=== PATIENT | female | born 1990 | race Caucasian/White ===

== ENCOUNTER → 2020-08-26 14:00 | Outpatient (BNVA) | payer BC, MEDICAID, SELFPAY | PROVIDERS: Family Provider Nurse Practitioner Family; Visit Provider Counselor Professional | DX: F33.2 Major depressive disorder, recurrent severe without psychotic features (principal); Z63.79 Other stressful life events affecting family and household | CPT/HCPCS: 90832 ==

== ENCOUNTER → 2020-09-02 08:03 | Outpatient (BNVA) | payer BC, MEDICAID, SELFPAY | PROVIDERS: Family Provider Nurse Practitioner Family; Visit Provider Counselor Professional | DX: F33.2 Major depressive disorder, recurrent severe without psychotic features (principal); Z63.79 Other stressful life events affecting family and household | CPT/HCPCS: 90832 ==

== ENCOUNTER → 2020-12-15 11:42 | Outpatient (BNVA) | payer OTHER, SELFPAY | PROVIDERS: Family Provider Nurse Practitioner Family; Visit Provider Psychiatry & Neurology Psychiatry | DX: F33.2 Major depressive disorder, recurrent severe without psychotic features (principal) | CPT/HCPCS: 80061; 83036 ==